=== PATIENT | male | born 1985 | race African-American/Black ===

== ENCOUNTER 2018-12-22 06:49 | Emergency (ER) | payer SELFPAY ==
[~2018-12-22] VITALS: Ht 185.4 cm; Wt 77.1 kg
[2018-12-22 07:04] VITALS: BP 138/80
[2018-12-22] MEDS ORDERED: IBUPROFEN 800 MG TAB PO ONE (07:45)
== END 2018-12-22 08:43 | disposition home or self-care (01) ==
LOC: ER 06:49
DX: S20.211A Contusion of right front wall of thorax, initial encounter (principal); S60.511A Abrasion of right hand, initial encounter; M54.2 Cervicalgia; V43.52XA Car driver injured in collision with other type car in traffic accident, initial encounter; Y93.89 Activity, other specified; Y99.8 Other external cause status; Y92.410 Unspecified street and highway as the place of occurrence of the external cause
CPT/HCPCS: 70450; 71046; 72040; 73110

== ENCOUNTER 2023-02-16 01:51 | Emergency (ER) | payer OTHER ==
[~2023-02-16] VITALS: Ht 185.4 cm; Wt 72.7 kg
[2023-02-16 02:07] VITALS: BP 140/52; PULSE 69; RESP 18
[2023-02-16 02:54] LABS: Hematocrit 41.1 % (41.0-53.0); Mean Corpuscular Hemoglobin 32.8 pg (28.0-32.0); Mean Corpuscular Volume 96.4 fL (80.0-100.0); Red Blood Cells 4.27 10^6/uL (4.5-5.90); Red Cell Distribution Width 14.2 % (11.8-14.3); White Blood Cell 3.8 10^3/uL (4.4-10.8)
[2023-02-16 02:57] LABS: Band Neutrophils % (manual) 0; Basophils % (manual) 0 (0.0-2.0); Blast Cells 0; Metamyelocytes % 0; Myelocytes % 0; Promyelocytes % 0; Reactive Lymphocytes 0
[2023-02-16 03:00] LABS: Calcium 8.5 mg/dL (8.5-10.1); Potassium 3.3 mmol/L (3.5-5.1)
[2023-02-16 03:09] LABS: Bilirubin, Total 0.4 mg/dL (0.2-1.0); Total Protein 7.3 g/dL (6.4-8.2)
[2023-02-16 03:16] LABS: Urine Bacteria NONE SEEN /hpf (None Seen); Urine Blood 3+ /uL (Negative); Urine Mucus FEW (None Seen); Urine Specific Gravity 1.023 (1.001-1.035); Urine WBC 17 /hpf (0 - 3)
[2023-02-16 04:21] LABS: Eosinophils % (manual) 8 (0-7); Lymphocytes % (manual) 61 (10.0-50.0); Monocytes % (manual) 6 (0-12)
[2023-02-16] MEDS ORDERED: PERCOT PO (04:54)
[2023-02-16] MEDS ORDERED: ZOFR4T PO (04:54)
[2023-02-16] MEDS ORDERED: CIPR-173 PO (04:54)
[2023-02-16 06:00] VITALS: O2SAT 100
[2023-02-16] MEDS ORDERED: OXYCODONE W/ ACETAMINOPHEN 5/325MG TABLET PO ONE (06:00)
[2023-02-16] MEDS ORDERED: ONDANSETRON ODT 4 MG TAB PO ONE (06:00)
[2023-02-16] MEDS ORDERED: cefTRIAXone SOD 1,000 MG VL IM ONE (06:00)
== END 2023-02-16 06:42 | disposition left against medical advice (07) ==
LOC: ER 01:51
DX: N39.0 Urinary tract infection, site not specified (principal)
CPT/HCPCS: 36415; 71250; 74176; 80053; 81001; 83690; 85007; 85027